=== PATIENT | female | born 1975 | race Caucasian/White ===

== ENCOUNTER 2016-12-01 07:01 | Day surgery (SDC) | payer MEDICARE, OTHER ==
[~2016-12-01 07:01] MED LIST: RINGERS SOLUTION,LACTATED 1,000 ML IV PRN; ceFAZolin SODIUM 1 GM in DEXTROSE 5 % IN WATER 100 ML IV PRN
--- OUTSIDE RECORDS SUMMARY | 2016-12-01 07:05 | XMS REPORT | Continuity of Care Document ---
:1975 Author Organization [facility] ([facility]) Address [address] [place] [address] Phone [phone] Care Team Providers Name Role Phone Unavailable Primary Care Provider Unavailable Source Comments This disclosure is being made pursuant to the Care Everywhere program, applicable federal and state laws, and may not contain all informaitonavailable regarding this patient.[facility] ([facility]) Active Allergies and Adverse Reactions Not on File Current Medications Not on file Active Problems Not on file Social History Tobacco Use Types Packs/Day Years Used Date Never Assessed Plan of Care Health Maintenance Due Date Last Done Comments Hepatitis B Vaccine (1 of 3 - Primary Series) 1975 Tdap Vaccine 1985 Lipid Disorder Screening 01/12/1992 MMR Vaccine 01/12/1992 Td Vaccine 01/12/1992 Cervical Cancer Screening 01/12/2004 Mammogram 2014 Influenza Vaccine: Seasonal (#1) 03/10/2016 Results from Last 3 Months Not on file
[2016-12-01] MEDS ORDERED: RINGERS SOLUTION,LACTATED 1,000 ML IV ONE (07:30)
[2016-12-01] MEDS ORDERED: BUPIVACAINE HCL 50 ML VIAL IJ ONE ×2 (08:04)
[2016-12-01] MEDS ORDERED: LIDOCAINE HCL 50 ML VIAL IJ ONE ×2 (08:04)
[2016-12-01 10:19] VITALS: BP 119/73
== END 2016-12-01 07:02 | disposition home or self-care (01) ==
LOC: AMB 07:01
PROVIDERS: ATTEND Student in an Organized Health Care Education/Training Program
PROC: 0QBQ0ZZ Excision of Right Toe Phalanx, Open Approach (ICD-10-PCS; principal; 2016-12-01 08:00)
DX: M21.611 Bunion of right foot (principal); J45.909 Unspecified asthma, uncomplicated; K21.9 Gastro-esophageal reflux disease without esophagitis; F32.9 Major depressive disorder, single episode, unspecified; Z87.891 Personal history of nicotine dependence; Z68.20 Body mass index [BMI] 20.0-20.9, adult

== ENCOUNTER 2016-12-08 22:16 | Emergency (ER) | payer MEDICARE, OTHER ==
--- OUTSIDE RECORDS SUMMARY | 2016-12-08 22:45 | XMS REPORT | Continuity of Care Document ---
:1975 Author Organization [facility] ([facility]) Address [address] [place] [address] Phone [phone] Care Team Providers Name Role Phone Unavailable Primary Care Provider Unavailable Source Comments This disclosure is being made pursuant to the Care Everywhere program, applicable federal and state laws, and may not contain all informaitonavailable regarding this patient.[facility] ([facility]) Active Allergies and Adverse Reactions [...]
--- NOTE | 2016-12-08 22:52 | ERNOTE ---
Lower Extremity HPI - General Lower Extremities Pain: 1st toe: right Time Seen by Provider: 12/08/16 22:33 Source: patient Exam Limitations: no limitations - Immun/Allergies/Home Medications Immunizations: IMMUNIZATION HX Immunizations Up to Date Yes History of Influenza Vaccine No Hx Pneumococcal Vaccination No Allergies/Adverse Reactions: Allergies Allergy/AdvReac Type Severity Reaction Status Date / Time No Known Allergies Allergy Verified 12/08/16 22:22 Home Medications: HOME MEDICATIONS Meloxicam [Mobic] 15 mg PO DAILY 08/05/15 [Last Taken Unknown] clonazePAM [Klonopin] 2 mg PO BID 08/05/15 [Last Taken Unknown] Albuterol Sulfate [Proair Hfa] 2 puff IH Q4H PRN 10/11/15 [Last Taken Unknown] Duloxetine HCl [Cymbalta] 30 mg PO DAILY 10/11/15 [Last Taken Unknown] Esomeprazole Magnesium [Nexium] 40 mg PO BID 10/11/15 [Last Taken Unknown] Fluticasone Propionate [Flonase] 1 spray NS BID 10/11/15 [Last Taken Unknown] HYDROcodone/ACETAMINOPHEN [[place] 5-325] 1 tab PO Q6H PRN 10/11/15 [Last Taken Unknown] Multivitamins [Multivitamin Uma] 1 cap PO DAILY 10/11/15 [Last Taken Unknown] Cyclosporine [Restasis] 1 each OP BID 11/28/16 [Last Taken Unknown] Dextroamphetamine/Amphetamine [Adderall 10 mg Tablet] 10 mg PO DAILY 11/28/16 [ Last Taken Unknown] Atorvastatin Calcium 10 mg PO HS 12/08/16 [Last Taken Unknown] - History of Present Illness Narrative: Pt recently had bunion repair on the right foot. she was walking through her living room without lights on. She tripped over a picture frame. She found bleeding from what appeared to be her surgical wound and presented to the ED. Occurred: just prior to arrival Location of Incident: home Method of Injury: Reports: fell Reason for Fall: Reports: tripped Loss of Consciousness: Reports: no loss of consciousness Associated Symptoms: Denies: unable to bear weight, snapping, popping sensation Other Injuries: Reports: none Prior Treament: Reports: recently seen, treated by physician, recently hospitalized - Bunion repair Review of Systems - Review of Systems Constitutional: Present: no symptoms reported EYE: Present: no symptoms reported ENT: Present: no symptoms reported Respiratory: Present: no symptoms reported Cardiology: Present: no symptoms reported Gastrointestinal/Abdominal: Present: no symptoms reported Genitourinary: Present: no symptoms reported Musculoskeletal: Absent: back pain, joint pain Skin: Present: See HPI Neurological: Absent: numbness, tingling Endocrine: Present: no symptoms reported Hematologic/Lymphatic: Present: no symptoms reported Psych: Present: no symptoms reported - Patient's Past Medical History Patient History - Medical: Arthritis, GERD, Other Patient History - Cardiac/Respiratory: Asthma, Other Patient History - Cancer: No Hx of Cancer Patient History - Surgical Procedures: D & C, Tubal Ligation, Other Patient History - Other: None LMP (Calendar): 11/28/16 - Family History Father Family History - Medical: No pertinent hx Family History - Cardiac/Respiratory: Hypertension Family History - Cancer: Prostate Mother Family History - Medical: Osteoporosis Family History - Cardiac/Respiratory: No pertinent hx Family History - Cancer: Other - Social History Living Situations: home Abuse History: No History of abuse Psych History: Hx of Anxiety, Hx of Depression, Current tx/ever been on anti- depressants or anti-anxiety meds Smoking Status: Never smoker Alcohol Use: none Drug Use: none - Immunizations Immunizations Up to Date: Yes Hx Pneumococcal Vaccination: No History of Influenza Vaccine: No Physical Exam - Physical Exam General Appearance: Present: wd/wn, alert, no apparent distress Neck: Present: normal inspection, nontender Respiratory: Present: no respiratory distress Peripheral Pulses: N=norm/S=strong/W=weak/B=bound/A=absent: Dorsalis-pedis (R): Normal Extremity Exam: Present: no edema, other - right foot. intact surgical wound along the medial great toe and distal 1st metatarsal Neurological Exam: Present: alert, oriented, normal mood/affect Skin Exam: Present: other - small laceration 1 mm above the distal end of the surgical wound. No envolvement of the surgical wound, surgical wound intact without any bleeding found even on magnified exam ED Progress - Vital Signs Vital Signs: Vital Signs 12/08/16 22:18 Temperature 36.4 C L Pulse Rate 78 Respiratory 20 Rate Blood Pressure 132/49 O2 Sat by Pulse 98 Oximetry - Progress/Reassessment Chief Complaint: Lower Extremity Pain/ Injury Progress Note-Subjective: 12/08/16 22:[address] Pat as the patient had surgery on this toe last week. Explained the case and that the bleeding was not actually from her surgical repair but from a would caused by something the patient tripped on which is just superior to the surgical wound. Surgical wound completely intact Departure Clinical Impression: Laceration - Departure Disposition: Home Follow Up Needed Condition: Good Instructions: Laceration Care, Adult, [id number] Additional Instructions: See Dr. aPt as scheduled or sooner if pain increases. Wash the new wound carefully with soap and water daily, keep covered as you have been instructed for your surgical wound Referrals: Jeremie Ny, [Primary Care Provider] -
[2016-12-08 23:09] VITALS: BP 119/79
== END 2016-12-08 23:00 | disposition home or self-care (01) ==
LOC: ER 22:16
DX: S91.311A Laceration without foreign body, right foot, initial encounter (principal); W22.8XXA Striking against or struck by other objects, initial encounter; Y93.01 Activity, walking, marching and hiking; Y92.008 Other place in unspecified non-institutional (private) residence as the place of occurrence of the external cause; F41.9 Anxiety disorder, unspecified; F32.9 Major depressive disorder, single episode, unspecified; J45.909 Unspecified asthma, uncomplicated